=== PATIENT | male | born 1960 | race Hispanic/Latino ===

== ENCOUNTER 2024-04-11 19:11 | Emergency (ER) | payer OTHER ==
[~2024-04-11] VITALS: Ht 160 cm; Wt 65.8 kg
[2024-04-11 19:38] LABS: BASOPHILS % 0.2 % (0.0-1.0); HEMATOCRIT 46.7 % (38.2-49.6); HEMOGLOBIN 15.9 g/dL (14.0-18.0); LYMPHOCYTES # (AUTO) 1.3 (1.0-3.2); LYMPHOCYTES % 15.9 % (18.0-39.1); MEAN CORPUSCULAR HEMOGLOBIN 30.5 pg (28-32); MEAN CORPUSCULAR VOLUME 89.5 fL (81-99); MONOCYTES # (AUTO) 0.6 (0.2-0.8); NEUTROPHILS # (AUTO) 6.1 (2.1-6.9); NEUTROPHILS % 75.4 % (38.7-80.0); PLATELET COUNT 174 x10e3/uL (140-360); RED BLOOD COUNT 5.22 x10e6/uL (4.3-5.7); WHITE BLOOD COUNT 8.05 x10e3/uL (4.8-10.8)
[2024-04-11] MEDS: SODIUM CHLORIDE 0.9% 1000ML 1,000 ML IV STA (19:49)
[2024-04-11] MEDS: ONDANSETRON HCL INJ 2MG/ML 2ML 2 MG/ML VIAL IV STA (19:50)
[2024-04-11 19:54] LABS: ALBUMIN 3.7 g/dL (3.5-5.0); ALBUMIN/GLOBULIN RATIO 0.9 (0.8-2.0); ANION GAP 16.5 mmol/L (8-16); BILIRUBIN,TOTAL 0.8 mg/dL (0.2-1.2); CALCIUM 8.7 mg/dL (8.4-10.2); CREATININE, SERUM 1.25 mg/dL (0.72-1.25); POTASSIUM 4.5 mmol/L (3.5-5.1); TOTAL PROTEIN 7.9 g/dL (6.5-8.1)
[2024-04-11 20:11] LABS: TROPONIN I 0.012 ng/mL (0-0.300)
[2024-04-11] MEDS: ACETAMINOPHEN 325 MG TAB PO STA (20:17)
[2024-04-11] MEDS ORDERED: IOPAMIDOL 370 MG/ML 100 ML INFUS..BTL INJ ONE (20:43)
[2024-04-11 22:10] LABS: CLARITY,URINE CLEAR (CLEAR); COLOR,URINE YELLOW (YELLOW); LEUKOCYTE ESTERASE ,URINE NEGATIVE (NEGATIVE); PH,URINE 6 (5 - 7)
[2024-04-11 22:11] LABS: BILIRUBIN,URINE NEGATIVE (NEGATIVE); GLUCOSE, URINE NEGATIVE (NEGATIVE); KETONES,URINE NEGATIVE (NEGATIVE); NITRITE,URINE NEGATIVE (NEGATIVE); PROTEIN,URINE DIPSTICK NEGATIVE (NEGATIVE)
[2024-04-11 22:18] LABS: WBC,URINE (MAN) 0-5 /HPF (0-5)
[2024-04-11 22:19] LABS: BACTERIA,URINE FEW /HPF; EPITHELIAL CELLS,URINE FEW /LPF; RBC,URINE 0-5 /HPF (0-5)
[2024-04-11] MEDS ORDERED: AMOX TR-K CLV1 EAC2 PO (23:31)
[2024-04-11] MEDS ORDERED: ONDANSETRON ODT4 MG PO (23:31)
[2024-04-11 23:40] VITALS: PULSE 66; RESP 16; TEMP 98.2; O2SAT 97
== END 2024-04-11 23:44 | disposition home or self-care (01) ==
LOC: ER 19:15
DX: R11.2 Nausea with vomiting, unspecified (principal); R19.7 Diarrhea, unspecified; K51.30 Ulcerative (chronic) rectosigmoiditis without complications; K76.0 Fatty (change of) liver, not elsewhere classified; Z11.52 Encounter for screening for COVID-19
CPT/HCPCS: 36415; 74177; 80053; 81001; 82550; 83690; 84484; 85025; 87400; 99284; J2405; J7030; Q9967; U0002

== ENCOUNTER 2024-04-16 15:12 | Inpatient (IN) | payer OTHER ==
[~2024-04-16] VITALS: Ht 160 cm; Wt 65.8 kg
[~2024-04-16 15:12] MED LIST: AMOX TR-K CLV1 EAC2 PO; ONDANSETRON ODT4 MG PO
[2024-04-16 15:38] VITALS: PULSE 83; RESP 16; TEMP 96.9
[2024-04-16 16:01] LABS: BASOPHILS % 0.4 % (0.0-1.0); EOSINOPHILS % 0.1 % (0.0-6.0); HEMATOCRIT 45.5 % (38.2-49.6); HEMOGLOBIN 16.4 g/dL (14.0-18.0); LYMPHOCYTES # (AUTO) 1.5 (1.0-3.2); LYMPHOCYTES % 15.5 % (18.0-39.1); MEAN CORPUSCULAR HEMOGLOBIN 30.8 pg (28-32); MEAN CORPUSCULAR VOLUME 85.5 fL (81-99); MONOCYTES # (AUTO) 0.5 (0.2-0.8); MONOCYTES % 4.8 % (4.4-11.3); NEUTROPHILS # (AUTO) 7.6 (2.1-6.9); NEUTROPHILS % 78.2 % (38.7-80.0); PLATELET COUNT 115 x10e3/uL (140-360); RED BLOOD COUNT 5.32 x10e6/uL (4.3-5.7); RED CELL DISTRIBUTION WIDTH 12.4 % (11.7-14.4); WHITE BLOOD COUNT 9.68 x10e3/uL (4.8-10.8)
[2024-04-16 16:22] LABS: ALBUMIN 3.1 g/dL (3.5-5.0); ALBUMIN/GLOBULIN RATIO 0.8 (0.8-2.0); ANION GAP 16.6 mmol/L (8-16); BILIRUBIN,TOTAL 0.7 mg/dL (0.2-1.2); CALCIUM 8.9 mg/dL (8.4-10.2); CREATININE, SERUM 1.15 mg/dL (0.72-1.25); POTASSIUM 3.6 mmol/L (3.5-5.1); TOTAL PROTEIN 7.1 g/dL (6.5-8.1)
[2024-04-16] MEDS ORDERED: IOPAMIDOL 370 MG/ML 100 ML INFUS..BTL INJ ONE (16:52)
[2024-04-16] MEDS ORDERED: ONDANSETRON HCL INJ 2MG/ML 2ML 2 MG/ML VIAL ONE (19:57)
[2024-04-16 20:00] VITALS: BP 114/78; PULSE 98; RESP 18; TEMP 100.1; O2SAT 99
[2024-04-16] MEDS: SODIUM CHLORIDE 0.9% 1000ML 1,000 ML IV SCH (20:01)
[2024-04-16] MEDS: CIPROFLOXACIN 400 MG/D5W 200ML 200 ML IV SCH (20:01)
[2024-04-16 21:00] VITALS: BP 114/78; PULSE 98; RESP 18; TEMP 100.1; O2SAT 99
[2024-04-16 21:03] VITALS: BP 114/78; PULSE 98; RESP 18; TEMP 100.1; O2SAT 99
[2024-04-16 21:12] VITALS: PULSE 90; RESP 18; O2SAT 98
[2024-04-16 21:52] VITALS: BP 114/78; PULSE 98; RESP 18; TEMP 100.1; O2SAT 99
[2024-04-16] MEDS: ACETAMINOPHEN 325 MG TAB PO PRN (22:48)
[2024-04-16] MEDS: METRONIDAZOLE 750MG/NS 150ML 150 ML IV SCH (22:50)
[2024-04-16] MEDS: METRONIDAZOLE 500MG/NS 100ML 200 ML IV ONE (22:51)
[2024-04-16 23:33] LABS: INR 0.89; PROTHROMBIN TIME 12.7 seconds (11.9-14.5)
[2024-04-17] VITALS (9 sets, daily range): BP systolic 94–125; BP diastolic 66–78; PULSE 77–101; RESP 16–20; TEMP 98.6–100.9; O2SAT 96–99
[2024-04-17] MEDS: METOCLOPRAMIDE HCL 10 MG/2ML VIAL IV SCH (00:28)
[2024-04-17 06:21] LABS: BASOPHILS % 0.2 % (0.0-1.0); HEMATOCRIT 37.9 % (38.2-49.6); HEMOGLOBIN 13.4 g/dL (14.0-18.0); LYMPHOCYTES # (AUTO) 1.8 (1.0-3.2); LYMPHOCYTES % 19.8 % (18.0-39.1); MEAN CORPUSCULAR HEMOGLOBIN 30.7 pg (28-32); MEAN CORPUSCULAR HGB CONC 35.4 g/dL (31-35); MEAN CORPUSCULAR VOLUME 86.7 fL (81-99); MONOCYTES # (AUTO) 0.5 (0.2-0.8); MONOCYTES % 5.6 % (4.4-11.3); NEUTROPHILS # (AUTO) 6.6 (2.1-6.9); NEUTROPHILS % 73.8 % (38.7-80.0); PLATELET COUNT 101 x10e3/uL (140-360); RED BLOOD COUNT 4.37 x10e6/uL (4.3-5.7); RED CELL DISTRIBUTION WIDTH 12.6 % (11.7-14.4); WHITE BLOOD COUNT 8.94 x10e3/uL (4.8-10.8)
[2024-04-17 06:36] LABS: INR 0.87; PROTHROMBIN TIME 12.5 seconds (11.9-14.5)
[2024-04-17 06:48] LABS: ALBUMIN 2.6 g/dL (3.5-5.0); ALBUMIN/GLOBULIN RATIO 0.8 (0.8-2.0); BILIRUBIN,TOTAL 0.6 mg/dL (0.2-1.2); CALCIUM 7.7 mg/dL (8.4-10.2); CREATININE, SERUM 0.82 mg/dL (0.72-1.25); TOTAL PROTEIN 5.8 g/dL (6.5-8.1)
[2024-04-17 07:50] LABS: BAND NEUTROPHILS % (MANUAL) 2 %; LYMPHOCYTES % (MANUAL) 14 % (19-48); MONOCYTES % (MANUAL) 2 % (3.4-9.0); NEUTROPHILS % (MANUAL) 82 % (40-74); PLATELET ESTIMATE SLIGHTLY DECREASED; PLATELET MORPHOLOGY COMMENT NORMAL; RBC MORPHOLOGY COMMENT NORMAL
[2024-04-17] MEDS ORDERED: LORAZEPAM INJ 2 MG/ML VIAL IV PRN (08:45)
[2024-04-17] MEDS ORDERED: Morphine 4mg INJECTION 4 MG/ML INJ IV PRN (08:45)
[2024-04-17] MEDS ORDERED: DIAZEPAM INJ 5 MG/ML 2 ML IV PRN (09:15)
[2024-04-17] MEDS: METRONIDAZOLE 500MG/NS 100ML 100 ML IV SCH (16:00)
[2024-04-17 20:22] LABS: HEPATITIS B SURFACE AG (P) Nonreactive
[2024-04-17 20:26] LABS: HEPATITIS C ANTIBODY Reactive
[2024-04-18] VITALS (8 sets, daily range): BP systolic 93–112; BP diastolic 66–72; PULSE 76–93; RESP 17–18; TEMP 98.5–102.1; O2SAT 95–100
[2024-04-18 06:33] LABS: BASOPHILS % 0.3 % (0.0-1.0); EOSINOPHILS % 0.1 % (0.0-6.0); HEMATOCRIT 34.3 % (38.2-49.6); HEMOGLOBIN 11.7 g/dL (14.0-18.0); LYMPHOCYTES # (AUTO) 2.6 (1.0-3.2); LYMPHOCYTES % 27.2 % (18.0-39.1); MEAN CORPUSCULAR HEMOGLOBIN 30.3 pg (28-32); MEAN CORPUSCULAR HGB CONC 34.1 g/dL (31-35); MEAN CORPUSCULAR VOLUME 88.9 fL (81-99); MONOCYTES # (AUTO) 0.7 (0.2-0.8); MONOCYTES % 7.4 % (4.4-11.3); NEUTROPHILS # (AUTO) 6.1 (2.1-6.9); NEUTROPHILS % 64.4 % (38.7-80.0); PLATELET COUNT 119 x10e3/uL (140-360); RED BLOOD COUNT 3.86 x10e6/uL (4.3-5.7); RED CELL DISTRIBUTION WIDTH 13.2 % (11.7-14.4); WHITE BLOOD COUNT 9.41 x10e3/uL (4.8-10.8)
[2024-04-18 06:53] LABS: ALBUMIN 2.2 g/dL (3.5-5.0); ALBUMIN/GLOBULIN RATIO 0.7 (0.8-2.0); ANION GAP 9.7 mmol/L (8-16); BILIRUBIN,TOTAL 0.5 mg/dL (0.2-1.2); CALCIUM 7.6 mg/dL (8.4-10.2); CREATININE, SERUM 0.81 mg/dL (0.72-1.25); PHOSPHORUS 2.7 MG/DL (2.3-4.7); POTASSIUM 3.7 mmol/L (3.5-5.1); TOTAL PROTEIN 5.2 g/dL (6.5-8.1)
[2024-04-18 08:35] LABS: BAND NEUTROPHILS % (MANUAL) 1 %; LYMPHOCYTES % (MANUAL) 15 % (19-48); MONOCYTES % (MANUAL) 9 % (3.4-9.0); NEUTROPHILS % (MANUAL) 75 % (40-74); PLATELET ESTIMATE SLIGHTLY DECREASED; PLATELET MORPHOLOGY COMMENT NORMAL; RBC MORPHOLOGY COMMENT NORMAL
[2024-04-18 10:25] LABS: WBC,FECAL (FECAL LACTOFERRIN) POSITIVE (NEGATIVE)
[2024-04-19] VITALS (7 sets, daily range): BP systolic 104–120; BP diastolic 68–90; PULSE 71–85; RESP 16–18; TEMP 98.1–99.5; O2SAT 95–99
[2024-04-19] MEDS: DICYCLOMINE HCL 20 MG TAB PO ONE (02:18)
[2024-04-19 05:57] LABS: BASOPHILS % 0.2 % (0.0-1.0); EOSINOPHILS % 0.2 % (0.0-6.0); HEMATOCRIT 32.7 % (38.2-49.6); HEMOGLOBIN 11.1 g/dL (14.0-18.0); LYMPHOCYTES # (AUTO) 2.8 (1.0-3.2); LYMPHOCYTES % 31.2 % (18.0-39.1); MEAN CORPUSCULAR HEMOGLOBIN 30.4 pg (28-32); MEAN CORPUSCULAR HGB CONC 33.9 g/dL (31-35); MEAN CORPUSCULAR VOLUME 89.6 fL (81-99); MONOCYTES # (AUTO) 0.7 (0.2-0.8); MONOCYTES % 7.1 % (4.4-11.3); NEUTROPHILS # (AUTO) 5.5 (2.1-6.9); NEUTROPHILS % 60.6 % (38.7-80.0); PLATELET COUNT 142 x10e3/uL (140-360); RED BLOOD COUNT 3.65 x10e6/uL (4.3-5.7); RED CELL DISTRIBUTION WIDTH 13.2 % (11.7-14.4); WHITE BLOOD COUNT 9.11 x10e3/uL (4.8-10.8)
[2024-04-19 06:26] LABS: ALBUMIN 2.1 g/dL (3.5-5.0); ALBUMIN/GLOBULIN RATIO 0.7 (0.8-2.0); ANION GAP 8.6 mmol/L (8-16); BILIRUBIN,TOTAL 0.5 mg/dL (0.2-1.2); CALCIUM 7.6 mg/dL (8.4-10.2); CREATININE, SERUM 0.73 mg/dL (0.72-1.25); POTASSIUM 3.6 mmol/L (3.5-5.1)
[2024-04-19 07:48] LABS: LYMPHOCYTES % (MANUAL) 21 % (19-48); MONOCYTES % (MANUAL) 6 % (3.4-9.0); NEUTROPHILS % (MANUAL) 71 % (40-74); PLATELET ESTIMATE SLIGHTLY DECREASED; PLATELET MORPHOLOGY COMMENT NORMAL; RBC MORPHOLOGY COMMENT NORMAL; REACTIVE LYMPHOCYTES 2
[2024-04-19] MEDS: DICYCLOMINE HCL 20 MG TAB PO SCH (08:31)
[2024-04-19 10:11] LABS: BLOOD UREA NITROGEN 8 mg/dL (7-26); GLUCOSE 87 mg/dL (74-118); OSMOLALITY,SERUM 253 mOsm/kg (278-305); SODIUM 127 mmol/L (136-145)
[2024-04-19] MEDS: SODIUM CHLORIDE 1 GM TAB PO SCH (16:27)
[2024-04-19] MEDS: ONDANSETRON HCL INJ 2MG/ML 2ML 2 MG/ML VIAL IV PRN (20:59)
[2024-04-20] VITALS (8 sets, daily range): BP systolic 109–128; BP diastolic 70–82; PULSE 69–83; RESP 16–19; TEMP 97.6–99.6; O2SAT 96–100
[2024-04-20] MEDS: DIPHENOXYLATE/ATROPINE TAB PO STA (01:38)
[2024-04-20 06:25] LABS: ALBUMIN 2.2 g/dL (3.5-5.0); ALBUMIN/GLOBULIN RATIO 0.8 (0.8-2.0); ANION GAP 8.6 mmol/L (8-16); BILIRUBIN,TOTAL 0.5 mg/dL (0.2-1.2); CALCIUM 7.6 mg/dL (8.4-10.2); CREATININE, SERUM 0.66 mg/dL (0.72-1.25); POTASSIUM 3.6 mmol/L (3.5-5.1); TOTAL PROTEIN 5.1 g/dL (6.5-8.1)
[2024-04-21] VITALS: BP 141/80; PULSE 77; RESP 18; TEMP 98.7; O2SAT 99
[2024-04-21 04:00] VITALS: BP 130/71; PULSE 71; RESP 18; TEMP 98.5; O2SAT 100
[2024-04-21 07:02] LABS: CALCIUM 9.8 mg/dL (8.4-10.2); CREATININE, SERUM 0.65 mg/dL (0.72-1.25)
[2024-04-21 08:00] VITALS: BP 129/70; PULSE 60; RESP 18; TEMP 98.4; O2SAT 100
[2024-04-21 08:45] VITALS: BP 129/70; PULSE 60; RESP 18; TEMP 98.4; O2SAT 100
[2024-04-21 10:35] LABS: POTASSIUM 3.6 mmol/L (3.5-5.1)
[2024-04-21 11:30] VITALS: BP 122/72; PULSE 72; RESP 16; TEMP 97.2; O2SAT 100
[2024-04-21 12:08] LABS: ANION GAP 8.6 mmol/L (8-16)
[2024-04-21] MEDS ORDERED: CIPRO500 MG PO (12:18)
[2024-04-21] MEDS ORDERED: flagyl PO (12:18)
[2024-04-21] MEDS ORDERED: CARAFATE1 GM PO (12:19)
[2024-04-21] MEDS ORDERED: PANTOPRAZOLE SO40 MG PO (12:19)
[2024-04-21] MEDS ORDERED: ONDANSETRON ODT4 MG SL (12:19)
== END 2024-04-21 12:44 | disposition home or self-care (01) | DRG 377 ==
LOC: ER 15:30 → ERHOLD 16:46 → MED/SURG2 20:57
PROVIDERS: ADMIT Internal Medicine; ATTEND Internal Medicine
PROC: 0DB78ZX Excision of Stomach, Pylorus, Via Natural or Artificial Opening Endoscopic, Diagnostic (ICD-10-PCS; 2024-04-20)
PROC: 0DB68ZX Excision of Stomach, Via Natural or Artificial Opening Endoscopic, Diagnostic (ICD-10-PCS; principal; 2024-04-20 17:11)
DX: K26.6 Chronic or unspecified duodenal ulcer with both hemorrhage and perforation (principal); K65.0 Generalized (acute) peritonitis; E22.2 Syndrome of inappropriate secretion of antidiuretic hormone; K29.81 Duodenitis with bleeding; K70.0 Alcoholic fatty liver; K70.30 Alcoholic cirrhosis of liver without ascites; K70.10 Alcoholic hepatitis without ascites; F10.20 Alcohol dependence, uncomplicated; E86.0 Dehydration; B19.20 Unspecified viral hepatitis C without hepatic coma; K25.9 Gastric ulcer, unspecified as acute or chronic, without hemorrhage or perforation; K22.5 Diverticulum of esophagus, acquired; K44.9 Diaphragmatic hernia without obstruction or gangrene; K29.70 Gastritis, unspecified, without bleeding; I10 Essential (primary) hypertension; E78.5 Hyperlipidemia, unspecified; Z87.891 Personal history of nicotine dependence
CPT/HCPCS: 36415; 43239; 74177; 76705; 80048; 80053; 82140; 82607; 82947; 83630; 83935; 83993; 84100; 84295; 84300; 84443; 84520; 84550; 85025; 85610; 87045; 87177; 87324; 87449; 87522; 88305; 88342; 93005; 94799; 99284; J2405; J2470; J2765; J7030; Q9967; U0002

== ENCOUNTER → 2024-07-03 | Day surgery (SDC) | payer OTHER ==
[2024-07-01 16:10] LABS: BASOPHILS # (AUTO) 0.1 (0.0-0.1); BASOPHILS % 0.6 % (0.0-1.0); EOSINOPHILS # (AUTO) 0.2 (0.0-0.4); EOSINOPHILS % 1.9 % (0.0-6.0); HEMATOCRIT 45.9 % (38.2-49.6); HEMOGLOBIN 15.1 g/dL (14.0-18.0); LYMPHOCYTES # (AUTO) 3.2 (1.0-3.2); LYMPHOCYTES % 39.7 % (18.0-39.1); MEAN CORPUSCULAR HEMOGLOBIN 30.6 pg (28-32); MEAN CORPUSCULAR HGB CONC 32.9 g/dL (31-35); MEAN CORPUSCULAR VOLUME 93.1 fL (81-99); MONOCYTES # (AUTO) 0.6 (0.2-0.8); MONOCYTES % 7.7 % (4.4-11.3); PLATELET COUNT 162 x10e3/uL (140-360); RED BLOOD COUNT 4.93 x10e6/uL (4.3-5.7); RED CELL DISTRIBUTION WIDTH 11.8 % (11.7-14.4); WHITE BLOOD COUNT 7.96 x10e3/uL (4.8-10.8)
[2024-07-01 16:21] LABS: INR 0.9; PARTIAL THROMBOPLASTIN TIME 26.7 seconds (23.8-35.5); PROTHROMBIN TIME 12.6 seconds (11.9-14.5)
[2024-07-01 16:30] LABS: ANION GAP 13.2 mmol/L (8-16); BILIRUBIN,TOTAL 0.3 mg/dL (0.2-1.2); CREATININE, SERUM 1.02 mg/dL (0.72-1.25); POTASSIUM 4.2 mmol/L (3.5-5.1)
[2024-07-01 17:02] LABS: ALBUMIN 3.8 g/dL (3.5-5.0); CALCIUM 9.9 mg/dL (8.4-10.2); TOTAL PROTEIN 7.8 g/dL (6.5-8.1)
[~2024-07-03] MED LIST changes: +CARAFATE1 GM PO; +CIPRO500 MG PO; +FENTANYL CITRATE/PF 100MCG/2 ML INJ ONE; +GLYCOPYRROLATE INJ 0.2 MG/ML VIAL ONE; +LIDOCAINE HCL 2% LOCAL INJ 5 ML SDV VIAL INJ ONE; +ONDANSETRON ODT4 MG SL; +PANTOPRAZOLE SO40 MG PO; +PROPOFOL IV EMULSION 10 MG/ML 20 ML VIAL ONE; +flagyl PO
[2024-07-03] MEDS: LACTATED RINGER'S 1,000 ML ONE (14:38)
[2024-07-03 17:52] VITALS: TEMP 97
[2024-07-03 18:25] VITALS: BP 117/83; PULSE 61; RESP 13; O2SAT 97
== END | disposition home or self-care (01) ==
LOC: OR 14:09
PROVIDERS: ATTEND Internal Medicine Gastroenterology
DX: Z12.11 Encounter for screening for malignant neoplasm of colon (principal); D12.0 Benign neoplasm of cecum; D12.2 Benign neoplasm of ascending colon; D12.3 Benign neoplasm of transverse colon; D12.4 Benign neoplasm of descending colon; D12.8 Benign neoplasm of rectum; K29.70 Gastritis, unspecified, without bleeding; K25.4 Chronic or unspecified gastric ulcer with hemorrhage; K22.5 Diverticulum of esophagus, acquired; K44.9 Diaphragmatic hernia without obstruction or gangrene; K64.8 Other hemorrhoids; B18.2 Chronic viral hepatitis C; Z71.3 Dietary counseling and surveillance; F12.20 Cannabis dependence, uncomplicated; Z71.89 Other specified counseling; Z01.812 Encounter for preprocedural laboratory examination; Z80.0 Family history of malignant neoplasm of digestive organs
CPT/HCPCS: 36415; 43239; 45385; 80053; 85025; 85610; 85730; J2003; J2704; J3010; J7121; J2470